=== PATIENT | female | born 1965 | race Caucasian/White ===

== ENCOUNTER 2017-03-14 14:47 | Outpatient (CLI) | payer OTHER ==
--- NOTE | 2017-03-14 16:50 | MRI Report ---
EXAM: RIGHT ELBOW MRI WITHOUT CONTRAST EXAM DATE: 03/14/2017 03:45 PM. CLINICAL HISTORY: Right elbow distal triceps pain since injury January 2017. COMPARISON: None. TECHNIQUE: Multiplanar, multisequence T1-weighted and fluid-sensitive sequences of the elbow without contrast. Other: None. FINDINGS: Bones: No fractures or subluxations. No marrow edema. No bone lesions. Articular Cartilage: Unremarkable. Ligaments: The ulnar collateral, lateral ulnar collateral, radial collateral, and annular ligaments a re intact. Tendons: Increased T2 signal in the common extensor origin consistent with tendinosis. The distal bic eps, brachialis, and triceps tendons are unremarkable. Musculature: No edema or fatty atrophy. Other: The cubital tunnel and ulnar nerve are unremarkable. There is a small joint effusion. The subc utaneous tissues are unremarkable. IMPRESSION: 1. The triceps tendon appears normal. 2. Small joint effusion. 3. Tendinosis of the common extensor origin. [facility] MUSCULOSKELET[facility]IOLOGY SECTION Referring Provider Line: [phone] SITE ID: [id number]
== END 2017-03-14 14:48 | disposition home or self-care (01) ==
LOC: DI 14:47
PROVIDERS: ATTEND Physician Assistant
DX: M67.98 Unspecified disorder of synovium and tendon, other site (principal); M25.421 Effusion, right elbow

== ENCOUNTER 2018-06-06 17:14 | Emergency (ER) | payer MEDICAID ==
[2018-06-06 17:41] LABS: BASOPHILS # (AUTO) 0.1 10^3/uL (0.0-0.1); BASOPHILS % (AUTO) 0.8 %; EOSINOPHILS % (AUTO) 0.1 %; LYMPHOCYTES % (AUTO) 31.9 %; MEAN CORPUSCULAR HEMOGLOBIN 28.2 pg (27.0-31.0); MEAN CORPUSCULAR HGB CONC 33.6 g/dL (32.0-36.0); MEAN CORPUSCULAR VOLUME 83.8 fL (81.0-99.0); MEAN PLATELET VOLUME 8.1 fL (7.9-10.8); MONOCYTES # (AUTO) 0.5 10^3/uL (0.0-1.0); MONOCYTES % (AUTO) 7.1 %; NEUTROPHILS # (AUTO) 3.9 10^3/uL (1.5-6.6); NEUTROPHILS % (AUTO) 60.1 %; PLT - PLATELET COUNT 218 10^3/uL (130-450); RED CELL DISTRIBUTION WIDTH 12.9 % (12.0-15.0); WHITE BLOOD COUNT 6.4 x10^3/uL (4.8-10.8)
[2018-06-06 17:51] LABS: ALBUMIN 4.2 g/dL (3.2-5.5); ALBUMIN/GLOBULIN RATIO 1.1 (1.0-2.2); BILIRUBIN,TOTAL 0.6 mg/dL (0.2-1.0); CALCIUM 9.1 mg/dL (8.5-10.3); CREATININE 0.6 mg/dL (0.4-1.0); TOTAL PROTEIN 8.1 g/dL (6.7-8.2)
[2018-06-06 18:03] LABS: BILIRUBIN,URINE NEGATIVE (NEGATIVE); GLUCOSE, URINE (UA) NEGATIVE (NEGATIVE); KETONES,URINE (UA) NEGATIVE (NEGATIVE); LEUKOCYTE ESTERASE, URINE NEGATIVE (NEGATIVE); NITRITE,URINE NEGATIVE (NEGATIVE); OCCULT BLOOD,URINE NEGATIVE (NEGATIVE); PH,URINE 6.5 PH (5.0-7.5); PROTEIN,URINE NEGATIVE (NEGATIVE); UROBILINOGEN,URINE 0.2 (NORMAL) E.U./dL (NORMAL)
[2018-06-06 18:08] LABS: CLARITY,URINE CLEAR (CLEAR)
--- NOTE | 2018-06-06 20:35 | ED Physician Documentation ---
PD HPI ABD PAIN - Stated complaint Stated Complaint: BACK PAIN FEVER DIZZY - Chief complaint Chief Complaint: Abd Pain - History obtained from History obtained from: Patient - History of Present Illness Timing - onset: How many days ago (4) Timing - duration: Days (4) Timing - details: Gradual onset, Still present, Waxing and waning Quality: Aching, Sharp, Pain Location: LLQ Radiation: Left flank (pain mainly in left flank, and did not notice it really in abdomen). No: Chest Improved by: Laying still. No: Eating Worsened by: Moving, Position. No: Eating, Breathing Associated symptoms: Fever (she says she had fever yesterday), Nausea, Dysuria. No: Vomiting, Diarrhea, Constipation, Hematuria, Near syncope / syncope, Loss of appetite Similar symptoms before: Has not had sx before Recently seen: Not recently seen Review of Systems Constitutional: reports: Fever. denies: Chills, Myalgias Nose: denies: Rhinorrhea / runny nose, Congestion Throat: denies: Sore throat Cardiac: denies: Chest pain / pressure Respiratory: denies: Dyspnea, Cough GI: reports: Abdominal Pain. denies: Nausea, Vomiting, Diarrhea : reports: Frequency. denies: Dysuria Skin: denies: Rash, Lesions Musculoskeletal: reports: Back pain. 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 - Present Medications Home Medications: Ambulatory Orders Medication Instructions Recorded Confirmed Sertraline HCl [Zoloft] 100 mg PO BID 11/05/12 03/03/15 traMADol [Ultram] 100 mg PO Q6H PRN 11/05/12 03/03/15 Cyclobenzaprine [Flexeril] 10 mg PO Q8HR 04/15/14 03/03/15 oxyCODONE/ACET 5/325 [Percocet 5 1 - 2 each PO Q6H PRN #14 tablet 03/03/15 mg/325 mg] Methocarbamol [Robaxin] 500 mg PO Q6H PRN #30 tablet 06/06/18 Naproxen 500 mg PO BID #20 tablet 06/06/18 Oxycodone HCl/Acetaminophen 1 each PO Q6H PRN #20 tablet 06/06/18 [Percocet 5-325 mg Tablet] - Allergies Allergies/Adverse Reactions: Allergies Allergy/AdvReac Type Severity Reaction Status Date / Time citalopram hydrobromide * AdvReac Mild KING Verified 11/05/12 14:08 [From Celexa] - Social History Does the pt smoke?: No Smoking Status: Never smoker Does the pt drink ETOH?: No Does the pt have substance abuse?: No - Immunizations Immunizations are current?: Yes - POLST Patient has POLST: No PD ED PE NORMAL - Vitals Vital signs reviewed: Yes - General General: Alert and oriented X 3, Well developed/nourished, Other (appears in pain and holding left side abd ) - HEENT HEENT: Pharynx benign - Neck Neck: Supple, no meningeal sign, No adenopathy - Cardiac Cardiac: RRR, No murmur - Respiratory Respiratory: Clear bilaterally - Abdomen Abdomen: Normal bowel sounds, Soft, Non distended, No organomegaly, Other (tender left mid abdomen to palpation. No percussion nor rebound tenderness. Rest of abd not t) - Female Female : Deferred - Rectal Rectal: Deferred - Back Back: No spinal TTP, Other (left CVA area tenderness to palpation and not percussion ) - Derm Derm: Normal color, Warm and dry, No rash - Neuro Neuro: Alert and oriented X 3, No motor deficit, Normal speech Results - Vitals Vitals: Vital Signs - 24 hr 06/06/18 06/06/18 06/06/18 17:22 20:12 21:32 Temperature 36.5 C 36.4 C L Heart Rate 87 68 83 Respiratory 18 18 16 Rate Blood Pressure 129/85 H 127/84 H 128/84 H O2 Saturation 97 99 100 06/06/18 06/06/18 22:34 22:59 Temperature Heart Rate 77 87 Respiratory 25 H 15 Rate Blood Pressure 121/80 121/80 O2 Saturation 98 100 Oxygen O2 Source Room air - Labs Labs: Laboratory Tests 06/06/18 06/06/18 06/06/18 17:26 17:31 17:31 WBC 6.4 RBC 4.60 Hgb 13.0 Hct 38.5 MCV 83.8 MCH 28.2 MCHC 33.6 RDW 12.9 Plt Count 218 MPV 8.1 Neut # (Auto) 3.9 Lymph # (Auto) 2.0 Harvey # (Auto) 0.5 Eos # (Auto) 0.0 Baso # (Auto) 0.1 Absolute Nucleated RBC 0.00 Nucleated RBC % 0.0 Sodium 135 Potassium 2.8 L Chloride 96 L Carbon Dioxide 28 Anion Gap 11.0 BUN 9 Creatinine 0.6 Estimated GFR (MDRD) 106 Glucose 125 H Calcium 9.1 Total Bilirubin 0.6 AST 40 ALT 29 Alkaline Phosphatase 77 Total Protein 8.1 Albumin 4.2 Globulin 3.9 Albumin/Globulin Ratio 1.1 Lipase 25 Urine Color YELLOW Urine Clarity CLEAR Urine pH 6.5 Ur Specific [place] <=1.005 Urine Protein NEGATIVE Urine Glucose (UA) NEGATIVE Urine Ketones NEGATIVE Urine Occult Blood NEGATIVE Urine Nitrite NEGATIVE Urine Bilirubin NEGATIVE Urine Urobilinogen 0.2 (NORMAL) Ur Leukocyte Esterase NEGATIVE Ur Microscopic Review NOT INDICATED Urine Culture Comments NOT INDICATED - Rads (name of study) abd/pelvic CT Radiology: Prelim report reviewed (no acute process), See rad report PD MEDICAL DECISION MAKING - ED course Complexity details: considered differential (Flank pain with some worsening on motion. It does seem muscular. However she said she had some fevers and dysuria so we will check a urine. This however appeared quite normal. She denied any vaginal discharge. She had some mild left sided mid abdominal tenderness. We therefore did CT scan to evaluate for stones as well as colitis or diverticulitis. The CT scan appeared normal. She was given IV fluids and medications to help with pain while in the ER. She did have improvement with that. This point I do not have a clear diagnosis to account for both the pain in her stated fevers. She has however afebrile here and with a normal white count.), d/w patient Departure - Departure Disposition: 01 Home, Self Care Clinical Impression: Acute left flank pain Abdominal pain Qualifiers: Abdominal location: left lower quadrant Qualified Code(s): R10.32 - Left lower quadrant pain Condition: Stable Record reviewed to determine appropriate education?: Yes Instructions: ED Flank Pain Uncertain Cause Follow-Up: PERLITA GOULD [Primary Care Provider] - Prescriptions: Methocarbamol [Robaxin] 500 mg PO Q6H PRN #30 tablet PRN Reason: Spasms Naproxen 500 mg PO BID #20 tablet Oxycodone HCl/Acetaminophen [Percocet 5-325 mg Tablet] 1 each PO Q6H PRN #20 tablet PRN Reason: pain Comments: No signs of focal infections nor urinary infection and no signs of kidney stones on your scan. I presume his back pain is muscular. The remaining symptoms may relate to a viral illness. Drink lots of fluids. Rest off work for a day or 2. Use an anti-inflammatory such as naproxen or ibuprofen twice daily. You can add muscle relaxant as needed for spasms. Add pain medicine if needed for worse pain. Continue your usual medicines at home. Forms: Activity restrictions Discharge Date/Time: 06/06/18 23:06
[2018-06-06] MEDS ORDERED: SODIUM CHLORIDE 0.9% 1,000 ML IV ONE (20:51)
[2018-06-06] MEDS ORDERED: HYDROmorphone 2 MG/ML VIAL IVP STA (20:52)
[2018-06-06] MEDS ORDERED: KETOROLAC 30 MG/ML VIAL IVP STA (20:52)
[2018-06-06] MEDS ORDERED: POTASSIUM BICARB 25 MEQ TABLET PO STA (20:54)
[2018-06-06] MEDS ORDERED: POTASSIUM CHLOR 10 MEQ/100 ML 10 MEQ/100 ML BAG IV ONE (20:54)
[2018-06-06] MEDS ORDERED: IOVERSOL 320 100 ML VIAL IVP ONE ×2 (21:02→22:06)
[2018-06-06] MEDS ORDERED: HYDROmorphone 1 MG/ML CARPUJECT IVP STA (22:28)
--- NOTE | 2018-06-06 22:33 | CT Report ---
Reason: left flank and abd pain, reported fever Procedure Date: 06/06/2018 Accession Number: [id number] / [id number] Procedure: CT - Abdomen/Pelvis W/ CPT Code: FULL RESULT: EXAM: CT ABDOMEN AND PELVIS EXAM DATE: 06/06/2018 09:40 PM. CLINICAL HISTORY: Left flank and abd pain, reported fever. COMPARISONS: CT ABD AND PELVIS WITH CONTRAST 08/03/2012 5:12 PM. TECHNIQUE: Routine helical CT imaging was performed through the abdomen and pelvis. IV contrast: 90ML OPTIRAY 320. Enteric contrast: No. Reconstructions: Coronal and sagittal. In accordance with CT protocol optimization, one or more of the following dose reduction techniques were utilized for this exam: automated exposure control, adjustment of mA and/or KV based on patient size, or use of iterative reconstructive technique. FINDINGS: Lung Bases: Unremarkable. Liver: Normal. No masses. Gallbladder/Bile Ducts: Status post cholecystectomy. Moderate common duct dilatation measuring 1.3 cm, mildly increased, tapers distally. Spleen: Normal. Pancreas: Normal. Adrenal Glands: Normal. Kidneys: Normal. No masses or hydronephrosis. Peritoneal Cavity/Bowel: Normal. No free fluid, free air or adenopathy. No masses or acute inflammatory process. Normal appendix. Pelvic Organs: Normal. The bladder and visualized pelvic organs are within normal limits. Vasculature: No aneurysms or other significant abnormality. Bones: No acute bone findings. IMPRESSION: 1. Status post cholecystectomy. Moderate common duct dilatation measuring 1.3 cm, mildly increased, tapers distally. 2. See above. [facility]
[2018-06-06 22:35] VITALS: BP 121/80
[2018-06-06] MEDS ORDERED: oxyCODONE/ACET 5/325 Prepack 4 PO STA (22:48)
== END 2018-06-06 23:06 | disposition home or self-care (01) ==
LOC: ED 17:14
DX: R10.32 Left lower quadrant pain (principal)
CPT/HCPCS: 36415; 74177; 80053; 81003; 83690; 85025; 96365; 96375; 96376; 99283; 99284; A9270; J1170; Q9967; 81001; 87086

== ENCOUNTER 2019-02-22 16:17 | Emergency (ER) | payer MEDICAID ==
[2019-02-22 16:27] VITALS: BP 119/83
--- NOTE | 2019-02-22 16:29 | ED Physician Documentation ---
History of Present Illness - Stated complaint Stated Complaint: LT ARM PX - Chief complaint Chief Complaint: Ext Problem - Additonal information Additional information: This is a 53-year-old female who presents with left shoulder pain. She was walking down some stairs last night and she missed a step and landed 2 stairs down, falling on her left arm. She Had immediate pain in her left shoulder. Today she went to work and when she lifts her arm up in front of her she has pain over the area of the deltoid radiates somewhat medially. She denies any pain or weakness in the distal extremity. She did not hit her head, did not lose consciousness. 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 - Present Medications Home Medications: Ambulatory Orders Medication Instructions Recorded Confirmed Sertraline HCl [Zoloft] 100 mg PO BID 11/05/12 03/03/15 traMADol [Ultram] 100 mg PO Q6H PRN 11/05/12 03/03/15 Cyclobenzaprine [Flexeril] 10 mg PO Q8HR 04/15/14 03/03/15 oxyCODONE/ACET 5/325 [Percocet 5 1 - 2 each PO Q6H PRN #14 tablet 03/03/15 mg/325 mg] Methocarbamol [Robaxin] 500 mg PO Q6H PRN #30 tablet 06/06/18 Naproxen 500 mg PO BID #20 tablet 06/06/18 Oxycodone HCl/Acetaminophen 1 each PO Q6H PRN #20 tablet 06/06/18 [Percocet 5-325 mg Tablet] - Allergies Allergies/Adverse Reactions: Allergies Allergy/AdvReac Type Severity Reaction Status Date / Time citalopram hydrobromide * AdvReac Mild KING Verified 02/22/19 16:27 [From Celexa] - Social History Does the pt smoke?: No Smoking Status: Never smoker Does the pt drink ETOH?: No Does the pt have substance abuse?: No - Immunizations Immunizations are current?: Yes - POLST Patient has POLST: No PD ED PE NORMAL - Vitals Vital signs reviewed: Yes - General General: Alert and oriented X 3, No acute distress - HEENT HEENT: Atraumatic - Respiratory Respiratory: No respiratory distress - Derm Derm: Warm and dry - Extremities Extremities: Other (Comparing the shoulders there is no asymmetry or deformity. Patient has some tenderness over the left deltoid, and also over the anterior aspect of the deltoid. Passive range of motion causes some pain above 90 degrees, however patient does have excellent range of motion. With forward flexion and empty can testing patient has pain. With shoulder abduction she also has some pain, however her internal rotation and external rotation are normal and almost pain-free. Distal pulses and strength are normal Sensation intact light touch over the distal extremity as well as disabused of the axillary nerve.) - Neuro Neuro: Alert and oriented X 3 - Psych Psych: Normal mood, Normal affect Results - Vitals Vitals: Vital Signs - 24 hr 02/22/19 16:23 Temperature 37.2 C Heart Rate 76 Respiratory 17 Rate Blood Pressure 119/83 H O2 Saturation 100 Oxygen O2 Source Room air - Rads (name of study) XR Shoulder L Radiology: Other (No acute osseous abnormality) PD MEDICAL DECISION MAKING - ED course Complexity details: considered differential (Strain, sprain, fracture, rotator cuff tear) ED course: Patient presents with left shoulder pain, there is no obvious deformity, she has good passive range of motion, and is neurovascularly intact. She does have some pain with empty can test, suggestive of potential supraspinatus injury. X-ray shows no acute osseous abnormality. I discussed with her that she may have a strain, or potentially rotator cuff tear. I do discussed supportive care, primary care follow-up, and if she is having continued symptoms or not improving, she understands that she may need further work-up. Return precautions were discussed with patient and she was discharged home in the care of family Departure - Departure Disposition: 01 Home, Self Care Clinical Impression: Shoulder pain Qualifiers: Chronicity: acute Laterality: left Qualified Code(s): M25.512 - Pain in left shoulder Condition: Good Follow-Up: PERLITA GOULD [Primary Care Provider] - Within 1 week Comments: Your x-ray does not show signs of fracture or dislocation today. I think it is possible that you have a strain of the muscles around her shoulder, or you may have a rotator cuff tear. Please take ibuprofen 600 mg every 6 hours as needed for pain, you may also take Tylenol 650 mg every 6 hours as needed for pain. You may use a sling for comfort, but make sure that you are doing circles with your shoulder and moving your elbow multiple times per days so you do not develop frozen shoulder or joint stiffness. If you are having continued pain that is not improving, or pain is lasting longer than the next week or 2, please follow-up with your primary care provider. Avoid straining her shoulder lifting heavy objects until your pain resolves.
[2019-02-22] MEDS ORDERED: IBUPROFEN 600 MG TABLET PO STA (16:55)
[2019-02-22] MEDS ORDERED: ACETAMINOPHEN 325 MG TABLET PO STA (16:55)
--- NOTE | 2019-02-22 17:18 | XRAY Report ---
Reason: pain 2/2 fall Procedure Date: 02/22/2019 Accession Number: [id number] / [id number] Procedure: XR - Shoulder 3 View LT CPT Code: Final Report FULL RESULT: EXAM: LEFT SHOULDER RADIOGRAPHY EXAM DATE: 02/22/2019 04:50 PM. CLINICAL HISTORY: Pain 2/2 fall. COMPARISON: None. TECHNIQUE: 3 views. FINDINGS: Bones: Normal. No fracture or bone lesion. Joints: The glenohumeral and acromioclavicular joints are normal. Soft tissues: The visualized hemithorax is unremarkable. No soft tissue swelling. IMPRESSION: No acute displaced fracture or malalignment. [facility]
== END 2019-02-22 18:10 | disposition home or self-care (01) ==
LOC: ED 16:17
DX: M25.512 Pain in left shoulder (principal)
CPT/HCPCS: 73030; 99282; 99283; A9270

== ENCOUNTER 2021-08-18 17:01 | Emergency (ER) | payer OTHER, MEDICAID ==
--- OUTSIDE RECORDS SUMMARY | 2021-08-18 17:23 | EXTERNAL MEDICAL SUMMARY RPT | Continuity of Care Document ---
:1965 Author Organization [facility] Address [address] [place] [address] Phone Care Team Providers Name Role Phone Ricardo Unavailable Unavailable Allergies No information. Encounters No information. Medications date description facility [id number] Lisinopril 2.5 MG Oral Tablet [facility] [id number] Sertraline 50 MG Oral Tablet [facility] Problems date description facility [id number] Overweight [facility] [id number] Other specified joint disorders, unspec ified hip [facility] [id number] Essential (primary) hypertension [facility] Procedures date description facility [id number] [facility] [id number] [facility] Results No information. Vital Signs date measurement value source 20210604 weight_standard 82.16 lb 20210604 weight_metric 37.27 kg 20210604 height_standard 66 in [id number] height_metric 167.64 cm 20210604 heart_rate 84 /min 20210604 BP_systolic 124 mm[Hg] 20210604 BP_diastolic 76 mm[Hg] 20210604 BMI 29.2 kg/m2
--- NOTE | 2021-08-18 18:22 | ED Physician Documentation ---
History of Present Illness - Stated complaint Stated Complaint: LT HIP PX - Chief complaint Chief Complaint: Ext Problem - History obtained from History obtained from: Patient - History of Present Illness Timing: Other (2 months) Pain level max: 9 Pain level now: 7 - Additonal information Additional information: 55-year-old female presents to the emergency department with left hip pain ongoing for the past 2 months. Worse with walking, better with rest. She had been on tramadol for chronic right hip pain, but stopped this about a week ago in preparation for surgery for a labrum repair on her right hip. She states that she sustained a fall 2 months ago and injured the left hip. Had negative x-rays at that time. No numbness or tingling. No skin changes. No bruising. Does not use any assistive walking devices. 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 - Present Medications Home Medications: Ambulatory Orders Medication Instructions Recorded Confirmed Sertraline HCl [Zoloft] 100 mg PO BID 11/05/12 03/03/15 traMADol [Ultram] 100 mg PO Q6H PRN 11/05/12 03/03/15 Cyclobenzaprine [Flexeril] 10 mg PO Q8HR 04/15/14 03/03/15 oxyCODONE/ACET 5/325 [Percocet 5 1 - 2 each PO Q6H PRN #14 tablet 03/03/15 mg/325 mg] Naproxen 500 mg PO BID #20 tablet 06/06/18 Oxycodone HCl/Acetaminophen 1 each PO Q6H PRN #20 tablet 06/06/18 [Percocet 5-325 mg Tablet] methocarbamoL [Robaxin] 500 mg PO Q6H PRN #30 tablet 06/06/18 HYDROcod/ACETAM 5/325 [[place]ogg[place] 5/325] 1 - 2 ea PO Q6H PRN #14 tablet 08/18/21 - Allergies Allergies/Adverse Reactions: Allergies Allergy/AdvReac Type Severity Reaction Status Date / Time citalopram hydrobromide * AdvReac Mild KING Verified 08/18/21 17:07 [From Celexa] - Social History Does the pt smoke?: No Smoking Status: Never smoker Does the pt drink ETOH?: No Does the pt have substance abuse?: No - Immunizations Immunizations are current?: Yes - POLST Patient has POLST: No PD ED PE NORMAL - Vitals Vital signs reviewed: Yes - General General: Alert and oriented X 3, No acute distress - HEENT HEENT: Moist mucous membranes - Neck Neck: Supple, no meningeal sign - Cardiac Cardiac: RRR, Strong equal pulses - Respiratory Respiratory: No respiratory distress, Clear bilaterally - Abdomen Abdomen: Soft, Non tender, Non distended - Derm Derm: Warm and dry - Extremities Extremities: No deformity, Other (Limited examination of the left hip secondary to pain. Pain with internal and external rotation. Abduction and abduction. Neurovascularly intact. No skin changes. No bruising. No crepitus.) - Neuro Neuro: Alert and oriented X 3 - Psych Psych: Normal mood, Normal affect Results - Vitals Vitals: Vital Signs - 24 hr 08/18/21 08/18/21 08/18/21 17:05 18:56 20:20 Temperature 36.5 C 36.4 C L Heart Rate 89 81 Respiratory 18 16 17 Rate Blood Pressure 141/81 H 128/72 O2 Saturation 99 99 Oxygen O2 Source Room air - Rads (name of study) Left hip x-ray Radiology: Final report received, EMP read contemporaneously, See rad report PD MEDICAL DECISION MAKING - ED course Complexity details: reviewed results, re-evaluated patient, considered differential, d/w patient ED course: No acute abnormalities on left hip x-ray. Likely soft tissue injury. Possible labrum injury? Recommend that she follow-up with her orthopedist for repeat evaluation. Pain well controlled. We will give her a walker for home as well to help take pressure off of the hip. Patient is well-appearing, nontoxic. Afebrile. Ambulating well after pain medication. I am prescribing a short course of short-acting opioid pain medication for this patient. 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 I have discussed that the opioids are for short term therapy only, and will not be refilled from the ED. Patient counseled regarding signs and symptoms for which I believe and urgent re-evaluation would be necessary. Patient with good understanding of and agreement to plan and is comfortable going home at this time This document was made in part using voice recognition software. While efforts are made to proofread this document, sound alike and grammatical errors may occur. Departure - Departure Disposition: 01 Home, Self Care Clinical Impression: Hip pain, left Condition: Good Instructions: ED Sprain Hip Follow-Up: PERLITA GOULD [Primary Care Provider] - Within 1 week Prescriptions: HYDROcod/ACETAM 5/325 [[place] 5/325] 1 - 2 ea PO Q6H PRN #14 tablet PRN Reason: Pain Comments: Your prescriptions were sent to [facility] in [place]. Please follow-up with your doctor for further care. They may want to order an MRI of your hip to check for any injuries such as labral tears. I am prescribing a short course of narcotic pain medication for you. These are potentially dangerous and addictive medications that should be used carefully. These medications may constipate you. Take an tnnd-jin-bdiziqj stool softener (docusate) twice daily with plenty of water while taking these medications. If you go 24 hours without a bowel movement, take elod-erh-ittiwsi miralax, per package instructions. Do not drink or drive while taking these medications. If you received narcotic or sedating medications while in the emergency department, do not drive for 24 hours. Store this medication in a safe, secure place and out of reach of children. It is a violation of federal law to give or sell this medication to another person or to use in a manner other than prescribed. The ED will not refill narcotic prescriptions, including prescriptions lost or stolen. To dispose of unwanted medications: 1. [facility] at [address] in [place] has a medication drop box. They accept prescription medications (in pill form) Monday through Monday 9:00 a.m. to 5:00 p.m. 2. The [facility] accepts prescription medications (in pill form only) for disposal year round. Call for more information. 3. Contact the [facility] for the next [facility] sponsored prescription drug collection event. , [phone], or [phone]; Discharge Date/Time: 08/18/21 20:29
[2021-08-18] MEDS ORDERED: HYDROcod/ACETAM 5/325 MG TABLET PO STA (18:41)
--- NOTE | 2021-08-18 19:28 | XRAY Report ---
PROCEDURE: Hip w/Pelvis 2-3V LT INDICATIONS: fall 2 months ago, continued pain TECHNIQUE: AP pelvis with lateral view(s) of the left hip(s). COMPARISON: None. FINDINGS: Bones: No fractures or dislocations. Pelvic ring appears intact. No suspicious bony lesions. Soft tissues: The visualized bowel gas pattern is normal. No suspicious soft tissue calcifications. IMPRESSION: No evidence acute bony abnormality of the pelvis and left hip. If clinical suspicion and/or symptoms persist, further assessment with repeat plain films or advanced imaging (e.g., CT, MRI, or bone scan) may be helpful for further assessment. Reviewed by: Teddy Woodall MD on 08/18/2021 7:27 PM PDT Approved by: Teddy Woodall MD on 08/18/2021 7:27 PM PDT Station ID: [id number]
[2021-08-18 20:22] VITALS: BP 128/72
== END 2021-08-18 20:29 | disposition home or self-care (01) ==
LOC: ED 17:01
DX: M25.552 Pain in left hip (principal)
CPT/HCPCS: 73502; 99283; 99284; A9270

== ENCOUNTER 2023-03-18 11:13 | Emergency (ER) | payer OTHER, MEDICAID ==
[2023-03-18 11:29] VITALS: O2SAT 100
--- NOTE | 2023-03-18 12:00 | XRAY Report ---
PROCEDURE: Chest 2 View X-Ray INDICATIONS: productive cough with SOA TECHNIQUE: 2 views of the chest were acquired. COMPARISON: None. FINDINGS: Surgical changes and devices: None. Lungs and pleura: No pleural effusions or pneumothorax. Lungs are clear. Mediastinum: Mediastinal contours appear normal. Heart size is normal. Bones and chest wall: No suspicious bony lesions. Overlying soft tissues appear unremarkable. IMPRESSION: No acute cardiopulmonary process. Reviewed by: Lamin Noel MD on 03/18/2023 11:59 AM [facility] Approved by: Lamin Noel MD on 03/18/2023 11:59 AM [facility] Station ID: [id number]
--- NOTE | 2023-03-18 12:14 | ED Physician Documentation ---
PD HPI URI - Stated complaint Stated Complaint: SORE THROAT/SOA - Chief complaint Chief Complaint: Resp - History obtained from History obtained from: Patient - History of Present Illness Timing - onset: How many weeks ago (1) Timing duration: Weeks (1) Timing details: Gradual onset, Still present Associated symptoms: Nasal congestion, Rhinorrhea, Productive cough, Dyspnea. No: Fever Contributing factors: Other (cleaning in daughters home with black mold) Improves by: Rest Worsened by: Activity, Breathing Similar symptoms before: Has not had sx before Recently seen: Not recently seen - Additional information Additional information: 57-year-old Leslie Bassett does not have any prior history of reactive airway disease and she has now developed a cough and congestion with loss of her voice and production of yellow-green and black phlegm with coughing. She denies any fever associated with this and states that she has been cleaning at her daughter's house and there is black mold that she has been cleaning up. She has begun to develop symptoms after beginning to do the cleaning at her daughter's house. Review of Systems Constitutional: denies: Fever Eyes: denies: Decreased vision Ears: denies: Ear pain Nose: reports: Congestion. 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 - Present Medications Home Medications: Ambulatory Orders Medication Instructions Recorded Confirmed Sertraline HCl [Zoloft] 100 mg PO BID 11/05/12 03/03/15 traMADol [Ultram] 100 mg PO Q6H PRN 11/05/12 03/03/15 Cyclobenzaprine [Flexeril] 10 mg PO Q8HR 04/15/14 03/03/15 oxyCODONE/ACET 5/325 [Percocet 5 1 - 2 each PO Q6H PRN #14 tablet 03/03/15 mg/325 mg] Naproxen 500 mg PO BID #20 tablet 06/06/18 Oxycodone HCl/Acetaminophen 1 each PO Q6H PRN #20 tablet 06/06/18 [Percocet 5-325 mg Tablet] methocarbamoL [Robaxin] 500 mg PO Q6H PRN #30 tablet 06/06/18 HYDROcod/ACETAM 5/325 [[place] 5/325] 1 - 2 ea PO Q6H PRN #14 tablet 08/18/21 Albuterol Sulf [Ventolin Hfa 1 - 2 puffs INH Q4HR PRN #1 each 03/18/23 Inhaler] predniSONE [Deltasone] 10 mg PO ONCE #26 tablet 03/18/23 - Allergies Allergies/Adverse Reactions: Allergies Allergy/AdvReac Type Severity Reaction Status Date / Time citalopram hydrobromide * AdvReac Mild KING Verified 03/18/23 11:24 [From Celexa] - Social History Does the pt smoke?: No Smoking Status: Never smoker Does the pt drink ETOH?: No Does the pt have substance abuse?: Yes Substance Use and Type: CBD oil / Products - Immunizations Immunizations are current?: Yes - POLST Patient has POLST: No PD ED PE NORMAL - Vitals Vital signs reviewed: Yes (hypertensive mild) - General General: Alert and oriented X 3, No acute distress, Well developed/nourished - HEENT HEENT: Atraumatic, PERRL, EOMI, Ears normal, Moist mucous membranes, Pharynx benign - Neck Neck: Supple, no meningeal sign, No bony TTP - Cardiac Cardiac: RRR, No murmur - Respiratory Respiratory: No respiratory distress, Other (scattered wheezes and rhonchi with fair air movement) - Abdomen Abdomen: Soft, Non tender - Back Back: No CVA TTP, No spinal TTP - Derm Derm: Normal color, Warm and dry, No rash - Extremities Extremities: No deformity, No edema - Neuro Neuro: Alert and oriented X 3, 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 parapertussis DNA (PCR) NOT DETECTED Nasal Coronavir 229E PCR NOT DETECTED Nasal Coronavir HKU1 PCR NOT DETECTED Nasal Coronavir NL63 PCR NOT DETECTED Nasal Coronavir OC43 PCR NOT DETECTED Nasal Enterovir/Rhinovir PCR NOT DETECTED Nasal Influenza B PCR NOT DETECTED Nasal Influenza A PCR NOT DETECTED Nasal Parainfluen 1 PCR NOT DETECTED Nasal Parainfluen 2 PCR NOT DETECTED Nasal Parainfluen 3 PCR NOT DETECTED Nasal Parainfluen 4 PCR NOT DETECTED Nasal RSV (PCR) NOT DETECTED Nasal B.pertussis DNA PCR NOT DETECTED Nasal C.pneumoniae (PCR) NOT DETECTED Joseph Human Metapneumo PCR NOT DETECTED Nasal M.pneumoniae (PCR) NOT DETECTED Nasal SARS-CoV-2 (PCR) NOT DETECTED - Rads (name of study) chest Relevant Findings:: Prelim report reviewed (Impression: No acute cardiopulmonary process.), EMP independent interpretation of test PD Medical Decision Making - ED course Complexity details: reviewed results, re-evaluated patient, considered differential, d/w patient ED course: 57-year-old female with a cough and shortness of breath after doing significant cleaning at her daughter's appears to have a respiratory irritant as the trigger for her reactive airway disease. We did not find evidence of physical bacterial infection on physical examination and we did examine the chest by x-ray as well again without evidence of infiltrate. A viral swab was negative as well. The patient is treated in the emergency department with 10 mg of dexamethasone and a DuoNeb treatment which did help with her breathing. We will prescribe some albuterol and prednisone and expect the patient to have resolution of her symptoms. She does have appointment with her doctor in 2 days and if she has further evidence of a bacterial superinfection she will have a second chance to treat this. Departure - Departure Disposition: 01 Home, Self Care Clinical Impression: Reactive airway disease Qualifiers: Asthma severity: mild Asthma persistence: intermittent Asthma complication type: with acute exacerbation Qualified Code(s): J45.21 - Mild intermittent asthma with (acute) exacerbation Condition: Stable Instructions: ED Reactive Airway Disease, ED Bronchitis Asthmatic Follow-Up: [facility] [Provider Group] Prescriptions: Albuterol Sulf [Ventolin Hfa Inhaler] 1 - 2 puffs INH Q4HR PRN #1 each PRN Reason: Shortness Of Air/Wheezing predniSONE [Deltasone] 10 mg PO ONCE #26 tablet Comments: Leslie, today we did not find any evidence of a bacterial infection on examination. The chest x-ray was without evidence of a of a pneumonia and your viral swab was negative for the viruses we test for. I believe like you do that your breathing situation occurred from your exposure to cleaning your daughter's house. The expectation with treatment is rapid improvement in your breathing and a decreased reliance on the rescue inhaler over the next 2 to 3 days. I have E scribed some prednisone and albuterol to the [facility] in [place]. Follow-up with your primary care doctor as previously planned on Monday.
[2023-03-18] MEDS ORDERED: IPRATROPIUM/ALBUTEROL 3 ML NEB INH STA (12:20)
[2023-03-18] MEDS ORDERED: CHERRY SYRUP 10 ML UDC PO ONE (12:20)
[2023-03-18] MEDS ORDERED: DEXAMETHASONE 10 MG/ML VIAL PO STA (12:20)
[2023-03-18 13:28] LABS: B. PARAPERTUSSIS- RESP PCR PAN NOT DETECTED; B. PERTUSSIS- RESP PCR PANEL NOT DETECTED; C. PNEUMONIAE- RESP PCR PANEL NOT DETECTED; CORONAVIRUS 229E-RESP PCR NOT DETECTED; CORONAVIRUS HKU1-RESP PCR NOT DETECTED; CORONAVIRUS NL63-RESP PCR NOT DETECTED; CORONAVIRUS OC43-RESP PCR NOT DETECTED; HUMAN METAPNEUMOVIRUS NOT DETECTED; INFLUENZA A- RESP PCR PANEL NOT DETECTED; INFLUENZA B - RESP PCR PANEL NOT DETECTED; M. PNEUMONIAE- RESP PCR PANEL NOT DETECTED; PARAINFLUENZA VIRUS 1 NOT DETECTED; PARAINFLUENZA VIRUS 2 NOT DETECTED; PARAINFLUENZA VIRUS 3 NOT DETECTED; PARAINFLUENZA VIRUS 4 NOT DETECTED; RHINOVIRUS/ENTEROVIRUS NOT DETECTED; RSV- RESP PCR PANEL NOT DETECTED; SARS-CoV-2 -RESP PCR PANEL NOT DETECTED
[2023-03-18 13:59] VITALS: BP 124/82
== END 2023-03-18 13:58 | disposition home or self-care (01) ==
LOC: ED 11:13
DX: J45.21 Mild intermittent asthma with (acute) exacerbation (principal); Z20.822 Contact with and (suspected) exposure to COVID-19
CPT/HCPCS: 71046; 87633; 94640; 99283; 99284; A9270